=== PATIENT | male | born 2000 | race Two or more races ===

== ENCOUNTER 2024-03-16 17:25 | Emergency (ER) | payer BC, SELFPAY ==
[2024-03-16 17:26] VITALS: BMI 24.0
[2024-03-16 17:47] VITALS: BP 152/88; PULSE 91; RESP 20; TEMP 37.1; O2SAT 97
--- NOTE | 2024-03-16 17:55 | XR_ITS ---
Examination: CT brain head without contrast. 2-D sagittal coronal reconstructions Date and time of exam:March 16, 2024 1816 hours INDICATIONS: Onset headache blurred vision beginning yesterday CTDI: vol (mGy):47.5 DLP: (mGycm):985 Technique: Multiple CT axial sections of the brain have been obtained, 5 mm slice thickness. Contrast has not been administered. 2-D sagittal, coronal reconstructions have been obtained Low dose protocols were performed. One or more of the following dose reduction techniques were used; automated exposure control, adjustment of the mA and/or KV according to patient size, use of iterative reconstruction technique. Findings: No significant ventricular enlargement. Intra-axial or extra-axial hemorrhage density is not seen. No mass effect or midline shift Basal cisterns are not remarkable. Fourth ventricle is midline. Cranial vault intact. Impression: Negative for acute hemorrhage, mass effect or midline shift If headaches blurred vision persist, consider brain MRI follow-up
--- NOTE | 2024-03-16 17:56 | PD.EDHA ---
ED Headache RME/HPI General Chief Complaint: Headache Stated Complaint: BLURRED VISION AND HEADACHE SINCE YESTERDAY Time Seen by Provider: 03/16/24 17:50 Arrival date/time: 03/16/24 17:25 RME / HPI RME / HPI Narrative: 23-year-old male patient with no significant medical history, came in for evaluation regarding headache. Patient's been having headache since yesterday associated with blurred vision, severity moderate. Patient was diagnosed with upper respiratory tract infection few days ago and was given amoxicillin and after that developed drug reaction. Was given epinephrine and Benadryl and Pepcid which completely resolved allergic reaction 2 days ago. Patient denies any fever denies any upper or lower extremity weakness patient is ambulatory. Denies any trauma to the head. Related Data Previous Rx's ?Medication ?Instructions ?Recorded diazepam 10 mg tablet (Valium) 10 mg PO BID PRN muscle spasm #14 06/06/22 tabs naproxen 500 mg tablet (Naprosyn) 500 mg PO BID PRN pain #30 tabs 06/06/22 methylprednisolone 4 mg tablets in 4 mg PO QAM #21 tabs 03/16/24 a dose pack (Medrol (Dajuan)) Allergies Allergy/AdvReac Type Severity Reaction Status Date / Time No Known Allergies Allergy Verified 03/16/24 17:28 Review of Systems Review of Systems Narrative Review of Systems: Review of system reviewed and within normal limits except mentioned in HPI Course Quality Measures none Orders Category Date Time Status Bedside COVID-19 Antigen Test NOW Care 03/16/24 17:55 Completed Bedside Influenza A&B Antigen Test NOW Care 03/16/24 17:[address] head/brain wo con Stat Exams 03/16/24 17:55 Completed CBC [CBC] Stat Lab 03/16/24 18:06 Completed CMP [Comprehensive Metabolic Panel] Stat Lab 03/16/24 18:06 Completed UA, C/S IF [Urinalysis, C/S if Indicated] Stat Lab 03/16/24 18:00 Completed Vital Signs Vital signs: Vital Signs Temperature 98.7 F 03/16/24 17:47 Pulse Rate 91 03/16/24 17:47 Respiratory Rate 20 03/16/24 17:47 Blood Pressure 152/88 H 03/16/24 17:47 Pulse Oximetry (%) 97 03/16/24 17:47 Oxygen Delivery Method Room Air 03/16/24 17:47 Headache MDM Narrative MDM Narrative:: 23-year-old male patient with no significant medical history, came in for evaluation regarding headache. Patient's been having headache since yesterday associated with blurred vision, severity moderate. Patient was diagnosed with upper respiratory tract infection few days ago and was given amoxicillin and after that developed drug reaction. Was given epinephrine and Benadryl and Pepcid which completely resolved allergic reaction 2 days ago. Patient denies any fever denies any upper or lower extremity weakness patient is ambulatory. Denies any trauma to the head. Patient's workup today all came back unremarkable. CT scan of the head also came back normal. Results discussed with the patient. Patient stable for discharge home Patient data External records reviewed:: None Clinical information provided by:: patient Social determinants that could affect healthcare access:: none Patient has the following chronic illnesses:: None How is presenting disease/condition affected by chronic disease/condition?: no chronic disease Evaluation data The following diagnostics were reviewed and interpreted by me:: lab results and radiology exam(s) Lab and/or radiology exams considered but not ordered:: None Interpretation Summary: Patient's workup all came back unremarkable CBC CMP normal urinalysis normal patient tested negative for influenza and COVID-19. CT scan of the head also came abnormal. Medications / Prescriptions Medications or Prescriptions considered but not ordered:: None Medication administrations:: None Consultations Consultation(s) initiated? (list below): No Diagnosis Differential diagnosis headache: migraine, tension headache and other (Drug allergy) Most likely diagnosis given after review of the tests above:: Headache, drug allergy Admission Indicated Admission indicated?: not indicated Explain why admission is indicated or not indicated:: None Admission Request Was there a request for admission?: No Disposition Plan Disposition Plan: Discharge Discharge Attestation Discharge Attestation: The patient and all family members were given an opportunity to ask questions and understood the discharge instructions. Discharge instructions specifically effects, indications for sooner follow up or return to the emergency department, and the expected course of current diagnosis. Patient condition: Stable Discharge Plan Plan Patient Disposition: HOME (Self Care) Disposition Comment: stable Prescriptions/Referrals Prescriptions/Med Rec: New methylprednisolone [Medrol (Dajuan)] 4 mg tablets,dose pack 4 mg PO QAM Qty: 21 0RF No Action diazepam [Valium] 10 mg tablet 10 mg PO BID PRN (Reason: muscle spasm) Qty: 14 0RF naproxen [Naprosyn] 500 mg tablet 500 mg PO BID PRN (Reason: pain) Qty: 30 0RF Referrals: Ralph Sotelo MD [Primary Care Provider] - In 1 week Problem List Clinical Impression: Headache, Drug allergy Patient/Caregiver Discharge Instructions Education Materials: Self-Care for Headaches Additional Instructions: Thank you for the opportunity for serving you today. You are stable for discharged . You are advised to: Follow-up with your PCP in 1 to 2 days Return to ED for worsening of symptoms Increase oral fluids Take medication as prescribed Print Language: Danish Stand Alone Forms: [employer] Award Info., Patient Portal Info Letter
[2024-03-16 18:14] LABS: Collection Type, Urine Clean Catch; Squamous Epithelial Cell,Urine 0 /hpf (0-5)
[2024-03-16 18:28] LABS: Basophils % (Auto) 0 % (0-2.5); Eosinophils # (Auto) 0.2 Thou/mm3 (0.0-0.5); Eosinophils % (Auto) 3 % (0-10); Hematocrit 47.6 % (41.0-53.0); Hemoglobin 16.2 g/dL (13.5-16.0); Immature Granulocytes % (Auto) 0 % (0-0); Immature Granulocytes Auto 0.01 Thou/mm3 (0.00-0.00); Lymphocytes # (Auto) 1.5 Thou/mm3 (1.0-4.8); Lymphocytes % (Auto) 28 % (10-50); Mean Corpuscular Volume 85 fL (80-100); Monocytes # (Auto) 0.4 Thou/mm3 (0.0-0.8); Monocytes % (Auto) 8 % (0-12); Neutrophils # (Auto) 3.2 Thou/mm3 (1.8-7.7); Neutrophils % (Auto) 61 % (37-80); Nucleated Red Blood Cell % 0 /100 WBC (0); Platelet Count 186 Thou/mm3 (140-440); RDW Standard Deviation 40.1 fL (35.1-43.9); Red Blood Count 5.59 Miln/mm3 (4.50-5.90); White Blood Count 5.2 Thou/mm3 (3.8-10.6)
[2024-03-16 18:41] LABS: Alanine Aminotransferase 107 U/L (10-49); Albumin, Serum 5.2 gm/dL (3.5-5.0); Alkaline Phosphatase 62 U/L (46-116); Anion Gap 7 (7-16); Aspartate Amino Transferase 48 U/L (0-34); BUN/Creatinine Ratio 10 Ratio (12-20); Bilirubin,Total 0.5 mg/dL (0.3-1.2); Blood Urea Nitrogen 8 mg/dL (9-23); Calcium 9.8 mg/dL (8.3-10.6); Calcium (Corrected) 9.8 mg/dL (8.5-10.1); Carbon Dioxide 28.5 mMol/L (20.0-31.0); Chloride 102 mMol/L (98-107); Creatinine (Component) 0.8 mg/dL (0.6-1.3); Estimated Creatinine Clearance 165.1 mL/min (>60); Globulin 2.6 gm/dL (2.3-3.5); Glucose 131 mg/dL (74-106); Osmolality,Calculated 274 (275-295); Potassium 3.8 mMol/L (3.4-5.1); Sodium 137 mMol/L (136-145); Total Protein 7.8 gm/dL (5.7-8.2); eGFR > 60 See Note
[2024-03-16 18:48] LABS: Bilirubin,Urine Negative (Negative); Blood,Urine Negative (Negative); Clarity,Urine Clear (Clear/Hazy); Color,Urine Colorless (Lt Yel-Yel); Culture Indicated,Urine Not Indicated; Glucose, Urine Trace (Negative); Ketones,Urine Negative (Negative); Leukocyte Esterase,Urine Negative (Negative); Nitrite,Urine Negative (Negative); PH,Urine 6.5 (5.0-7.0); Protein,Urine Negative (Neg - Trace); RBC,Urine < 1 /hpf (0-3); Specific Gravity,Urine 1.008 (1.001-1.035); Urobilinogen,Urine Negative mg/dL (0.0-1.0); WBC,Urine < 1 /hpf (0-5)
[2024-03-16 19:58] VITALS: RESP 18
== END 2024-03-16 19:59 | disposition home or self-care (01) ==
PROVIDERS: Nurse Practitioner Family; Emergency Provider Emergency Medicine; PCP Specialist
DX: G44.40 Drug-induced headache, not elsewhere classified, not intractable (principal); H53.8 Other visual disturbances; T36.0X5A Adverse effect of penicillins, initial encounter
CPT/HCPCS: 36415; 70450; 80053; 81001; 85025; 87400; 87811; 99284